=== PATIENT | male | born 1985 | race Caucasian/White ===

== ENCOUNTER 2016-06-06 12:13 | Inpatient (IN) | payer BC, OTHER ==
[~2016-06-06] VITALS: Ht 185.4 cm; Wt 68.0 kg
[2016-06-06 12:46] VITALS: BP 134/99
[2016-06-06] MEDS ORDERED: TRAZ-144 PO (13:02)
[2016-06-06] MEDS ORDERED: MAGNESIUM HYDROXIDE 30 ML LIQUID UDC PO PRN (13:15)
[2016-06-06] MEDS ORDERED: ACETAMINOPHEN 325 MG TABLET PO PRN (13:15)
[2016-06-06] MEDS ORDERED: IBUPROFEN 400 MG TABLET PO PRN (13:15)
[2016-06-06] MEDS ORDERED: diphenhydrAMINE 50 MG CAPSULE PO PRN (13:15)
[2016-06-06] MEDS ORDERED: CLONIDINE HCL 0.1 MG TABLET PO PRN (13:15)
[2016-06-06] MEDS ORDERED: PROMETHAZINE HCL 25 MG/1 ML VIAL IM PRN (13:15)
[2016-06-06] MEDS ORDERED: LORAZEPAM 1 MG TABLET PO PRN ×2 (13:15)
[2016-06-06] MEDS ORDERED: THIAMINE HCL 200 MG/2 ML VIAL IM ONE (13:15)
[2016-06-06] MEDS ORDERED: MIRALAX 17 GM POWD.PACK PO PRN (13:15)
[2016-06-06] MEDS ORDERED: LORAZEPAM 2 MG/1 ML VIAL IM PRN (13:15)
[2016-06-06] MEDS ORDERED: ONDANSETRON ODT 4 MG TAB.RAPDIS SL PRN (13:15)
[2016-06-06] MEDS ORDERED: LOPERAMIDE HCL 2 MG CAPSULE PO PRN ×2 (13:15)
[2016-06-06] MEDS ORDERED: MAG HYDROX/AL HYDROX/SIMETH 30 ML LIQUID UDC PO PRN (13:15)
[2016-06-06 14:36] LABS: *AMPHETAMINE, URINE NEGATIVE (NEGATIVE); *BARBITURATE, URINE NEGATIVE (NEGATIVE); *CANNABINOID, URINE NEGATIVE (NEGATIVE); *COCCAINE, URINE NEGATIVE (NEGATIVE); *OPIATE, URINE NEGATIVE (NEGATIVE); *PHENCYCLIDINE SCREEN,URINE NEGATIVE (NEGATIVE)
[2016-06-06 14:44] LABS: BASOPHILS % (AUTO) 0.6 % (0.0-2.0); EOSINOPHILS % (AUTO) 0.9 % (0.0-7.0); HEMATOCRIT 46.1 % (40.0-50.0); HEMOGLOBIN 15.4 g/dL (14.0-18.0); LYMPHOCYTES # (AUTO) 1.9 K/uL (0.8-4.8); LYMPHOCYTES % (AUTO) 39.1 % (20.5-51.5); MEAN CORPUSCULAR HEMOGLOBIN 30.9 uug (27.0-31.0); MEAN CORPUSCULAR HGB CONC 34 g/dL (32.0-37.0); MEAN CORPUSCULAR VOLUME 92.2 fL (82.0-92.0); MONOCYTES # (AUTO) 0.3 K/uL (0.1-1.30); MONOCYTES % (AUTO) 7.1 % (0.0-11.0); NEUTROPHILS # (AUTO) 2.6 K/uL (1.8-8.9); NEUTROPHILS % (AUTO) 52.3 % (38.5-71.5); PLATELET COUNT (AUTO) 252 K/uL (150-450); RED CELL DISTRIBUTION WIDTH 12.8 % (11.5-14.5); WHITE BLOOD COUNT (AUTO) 4.8 K/uL (4.0-11.2)
[2016-06-06 14:58] LABS: BILIRUBIN,TOTAL 0.6 mg/dL (0.2-1.0); CALCIUM 8.9 mg/dL (8.5-10.1); CREATININE 0.9 mg/dL (0.6-1.3); MAGNESIUM 1.7 mg/dL (1.8-2.4); POTASSIUM 3.6 mmol/L (3.5-5.1); TOTAL PROTEIN, SERUM 8.7 g/dL (6.4-8.2)
[2016-06-06 15:09] LABS: THYROID STIMULATING HORMONE 0.437 mIU/mL (0.358-3.740)
[2016-06-06 15:39] LABS: HIV-1/2 ANTIBODY NON REACTIVE (NONREACTIVE)
[2016-06-06 15:40] LABS: HIV-1 p24 ANTIGEN NON REACTIVE (NONREACTIVE)
[2016-06-06 16:00] VITALS: BP 134/90
[2016-06-06] MEDS ORDERED: MAGNESIUM OXIDE 400 MG TABLET PO ONE (17:00)
[2016-06-06 20:00] VITALS: BP 123/75
[2016-06-06] MEDS: HYDROXYZINE PAMOATE 25 MG CAPSULE PO PRN (20:54)
[2016-06-06] MEDS ORDERED: TRAZODONE 50 MG TABLET PO SCH (21:00)
[2016-06-07] VITALS: BP 123/57
[2016-06-07 04:00] VITALS: BP 123/60
[2016-06-07 08:00] VITALS: BP 135/87
[2016-06-07] MEDS: THIAMINE HCL 100 MG TABLET PO SCH (08:44)
[2016-06-07] MEDS: MULTIVITAMINS,THERAPEUTIC TABLET PO SCH (08:44)
[2016-06-07] MEDS: FOLIC ACID 1 MG TABLET PO SCH (08:44)
[2016-06-07] MEDS: LORAZEPAM 1 MG TABLET PO SCH ×3 (08:44→20:32)
[2016-06-07] MEDS ORDERED: TUBERCULIN,PURIF.PROT.DERIV. 5 TU/0.1 ML TEST ID ONE (09:00)
[2016-06-07] MEDS: DICYCLOMINE HCL 20 MG TABLET PO PRN (12:17)
[2016-06-07 13:10] VITALS: BP 136/87
[2016-06-07 13:36] LABS: HCV AB <0.1 s/co ratio (0.0-0.9); HEPATITIS B CORE AB, IgM Negative (Negative); HEPATITIS B SURFACE AG Negative (Negative)
[2016-06-07] MEDS: IV NS 1000 ML 1,000 ML IV PRN ×2 (14:08→22:43)
[2016-06-07 16:00] VITALS: BP 117/89
[2016-06-07 20:00] VITALS: BP 137/80
[2016-06-07] MEDS: TRAZODONE 100 MG TABLET PO SCH (20:32)
[2016-06-07] MEDS ORDERED: TRAZODONE 50 MG TABLET PO SCH (21:00)
[2016-06-08] VITALS: BP 94/53
[2016-06-08 04:00] VITALS: BP 114/71
[2016-06-08] MEDS: IV NS 1000 ML 1,000 ML IV PRN (07:44)
[2016-06-08 08:00] VITALS: BP 114/76
[2016-06-08] MEDS: LORAZEPAM 1 MG TABLET PO SCH ×4 (08:31→21:04)
[2016-06-08] MEDS: THIAMINE HCL 100 MG TABLET PO SCH (08:31)
[2016-06-08] MEDS: FOLIC ACID 1 MG TABLET PO SCH (08:31)
[2016-06-08] MEDS: MULTIVITAMINS,THERAPEUTIC TABLET PO SCH (08:31)
[2016-06-08 09:06] LABS: BILIRUBIN,DIRECT 0.3 mg/dL (0.0-0.2); BILIRUBIN,TOTAL 1.4 mg/dL (0.2-1.0); CALCIUM 8.6 mg/dL (8.5-10.1); CREATININE 0.8 mg/dL (0.6-1.3); MAGNESIUM 1.6 mg/dL (1.8-2.4); POTASSIUM 4.1 mmol/L (3.5-5.1); TOTAL PROTEIN, SERUM 7.2 g/dL (6.4-8.2)
[2016-06-08] MEDS ORDERED: MAGNESIUM OXIDE 400 MG TABLET PO ONE (10:15)
[2016-06-08] MEDS: METRONIDAZOLE 500 MG TABLET PO SCH ×2 (11:45→21:04)
[2016-06-08 12:00] VITALS: BP 129/78
[2016-06-08 16:00] VITALS: BP 115/78
[2016-06-08 20:00] VITALS: BP 127/91
[2016-06-08] MEDS: TRAZODONE 100 MG TABLET PO SCH (21:04)
[2016-06-09] VITALS: BP 112/76
[2016-06-09] MEDS: METRONIDAZOLE 500 MG TABLET PO SCH ×3 (06:18→21:25)
[2016-06-09 08:00] VITALS: BP 124/77
[2016-06-09 08:48] LABS: MAGNESIUM 1.7 mg/dL (1.8-2.4); PHOSPHOROUS 4.1 mg/dL (2.5-4.9); POTASSIUM 3.8 mmol/L (3.5-5.1)
[2016-06-09 08:53] LABS: CALCIUM 8.8 mg/dL (8.5-10.1)
[2016-06-09] MEDS: FOLIC ACID 1 MG TABLET PO SCH (09:17)
[2016-06-09] MEDS: THIAMINE HCL 100 MG TABLET PO SCH (09:18)
[2016-06-09] MEDS: LORAZEPAM 1 MG TABLET PO SCH ×3 (09:18→21:26)
[2016-06-09] MEDS: MULTIVITAMINS,THERAPEUTIC TABLET PO SCH (09:18)
[2016-06-09] MEDS ORDERED: MAGNESIUM OXIDE 400 MG TABLET PO ONE ×2 (11:30→13:00)
[2016-06-09 12:00] VITALS: BP 117/72
[2016-06-09 14:14] LABS: BASOPHILS % (AUTO) 0.6 % (0.0-2.0); EOSINOPHILS # (AUTO) 0.1 K/uL (0.0-0.7); EOSINOPHILS % (AUTO) 3.6 % (0.0-7.0); HEMATOCRIT 44.1 % (40.0-50.0); HEMOGLOBIN 14.6 g/dL (14.0-18.0); LYMPHOCYTES # (AUTO) 1.1 K/uL (0.8-4.8); MEAN CORPUSCULAR HEMOGLOBIN 30.8 uug (27.0-31.0); MEAN CORPUSCULAR HGB CONC 33 g/dL (32.0-37.0); MEAN CORPUSCULAR VOLUME 93.3 fL (82.0-92.0); MONOCYTES # (AUTO) 0.7 K/uL (0.1-1.30); MONOCYTES % (AUTO) 16.2 % (0.0-11.0); NEUTROPHILS # (AUTO) 2.2 K/uL (1.8-8.9); NEUTROPHILS % (AUTO) 53.6 % (38.5-71.5); PLATELET COUNT (AUTO) 151 K/uL (150-450); RED BLOOD CELL COUNT(AUTO) 4.73 MIL/uL (4.70-6.10); RED CELL DISTRIBUTION WIDTH 12.7 % (11.5-14.5); WHITE BLOOD COUNT (AUTO) 4.1 K/uL (4.0-11.2)
[2016-06-09 14:57] LABS: BAND % (MANUAL) 4 % (0-10); EOSINOPHILS % (MANUAL) 5 % (0-8); LYMPHOCYTES % (MANUAL) 27 % (20-40); MONOCYTES % (MANUAL) 15 % (2-10); NEUTROPHILS % (MANUAL) 49 % (42-75); PLATELET ESTIMATE ADEQUATE
[2016-06-09 16:00] VITALS: BP 131/73
[2016-06-09 20:00] VITALS: BP 128/83
[2016-06-09] MEDS: TRAZODONE 100 MG TABLET PO SCH (21:26)
[2016-06-10] MEDS: METRONIDAZOLE 500 MG TABLET PO SCH ×3 (06:50→21:07)
[2016-06-10 07:18] LABS: CALCIUM 8.8 mg/dL (8.5-10.1); CREATININE 0.9 mg/dL (0.6-1.3); MAGNESIUM 1.8 mg/dL (1.8-2.4)
[2016-06-10 08:00] VITALS: BP 122/74
[2016-06-10] MEDS: FOLIC ACID 1 MG TABLET PO SCH (09:15)
[2016-06-10] MEDS: THIAMINE HCL 100 MG TABLET PO SCH (09:15)
[2016-06-10] MEDS: MULTIVITAMINS,THERAPEUTIC TABLET PO SCH (09:15)
[2016-06-10] MEDS: LORAZEPAM 1 MG TABLET PO SCH ×2 (09:15→21:07)
[2016-06-10 12:00] VITALS: BP 132/85
[2016-06-10 16:00] VITALS: BP 124/78
[2016-06-10 20:00] VITALS: BP 121/83
[2016-06-10] MEDS: TRAZODONE 100 MG TABLET PO SCH (21:07)
[2016-06-11] MEDS: METRONIDAZOLE 500 MG TABLET PO SCH ×3 (06:49→21:05)
[2016-06-11 08:00] VITALS: BP 117/69
[2016-06-11] MEDS: MULTIVITAMINS,THERAPEUTIC TABLET PO SCH (09:26)
[2016-06-11] MEDS: THIAMINE HCL 100 MG TABLET PO SCH (09:26)
[2016-06-11] MEDS: FOLIC ACID 1 MG TABLET PO SCH (09:27)
[2016-06-11 12:00] VITALS: BP 125/80
[2016-06-11] MEDS ORDERED: HYDR-3895 PO (15:50)
[2016-06-11] MEDS ORDERED: DICY20TA28 PO (15:50)
[2016-06-11] MEDS ORDERED: Metronidazole PO (15:50)
[2016-06-11 16:00] VITALS: BP 123/79
[2016-06-11 20:00] VITALS: BP 121/90
[2016-06-11] MEDS: HYDROXYZINE PAMOATE 25 MG CAPSULE PO PRN (21:06)
[2016-06-11] MEDS: DICYCLOMINE HCL 20 MG TABLET PO PRN (21:06)
[2016-06-11 21:35] LABS: *AMPHETAMINE, URINE NEGATIVE (NEGATIVE); *BARBITURATE, URINE NEGATIVE (NEGATIVE); *CANNABINOID, URINE NEGATIVE (NEGATIVE); *COCCAINE, URINE NEGATIVE (NEGATIVE); *OPIATE, URINE NEGATIVE (NEGATIVE); *PHENCYCLIDINE SCREEN,URINE NEGATIVE (NEGATIVE)
[2016-06-11] MEDS: TRAZODONE 100 MG TABLET PO SCH (21:48)
[2016-06-12] MEDS: METRONIDAZOLE 500 MG TABLET PO SCH (06:50)
[2016-06-12 08:32] VITALS: BP 122/78
[2016-06-12] MEDS: FOLIC ACID 1 MG TABLET PO SCH (08:43)
[2016-06-12] MEDS: THIAMINE HCL 100 MG TABLET PO SCH (08:44)
[2016-06-12] MEDS: MULTIVITAMINS,THERAPEUTIC TABLET PO SCH (08:44)
== END 2016-06-12 09:06 | disposition other institution (70) | DRG 895 ==
LOC: SRC 12:13
PROVIDERS: ADMIT Internal Medicine; ATTEND Internal Medicine
PROC: HZ2ZZZZ Detoxification Services for Substance Abuse Treatment (ICD-10-PCS; principal; 2016-06-06)
PROC: HZ41ZZZ Group Counseling for Substance Abuse Treatment, Behavioral (ICD-10-PCS; 2016-06-06)
PROC: HZ31ZZZ Individual Counseling for Substance Abuse Treatment, Behavioral (ICD-10-PCS; 2016-06-08)
DX: F10.230 Alcohol dependence with withdrawal, uncomplicated (principal); A04.7 Enterocolitis due to Clostridium difficile; K70.10 Alcoholic hepatitis without ascites; Y90.9 Presence of alcohol in blood, level not specified; E83.42 Hypomagnesemia; Z81.8 Family history of other mental and behavioral disorders; F41.9 Anxiety disorder, unspecified; F12.10 Cannabis abuse, uncomplicated; Z81.1 Family history of alcohol abuse and dependence
CPT/HCPCS: 36415; 70030-TC; 80307; 83690; 83735; 84100; 84443; 85025; 86580; 86592; 86705; 86803; 87046; 87340; 87806; A4663; G6040-TC; J3411; J7030

== ENCOUNTER 2016-07-29 16:31 | Inpatient (IN) | payer BC, OTHER ==
[~2016-07-29] VITALS: Ht 185.4 cm; Wt 65.8 kg
[~2016-07-29 16:31] MED LIST: DICY20TA28 PO; HYDR-3895 PO; Metronidazole PO; TRAZ-144 PO
[2016-07-29] MEDS ORDERED: LORAZEPAM 2 MG/1 ML VIAL IM PRN (17:30)
[2016-07-29] MEDS ORDERED: ONDANSETRON ODT 4 MG TAB.RAPDIS SL PRN (17:30)
[2016-07-29] MEDS ORDERED: diphenhydrAMINE 50 MG CAPSULE PO PRN (17:30)
[2016-07-29] MEDS ORDERED: THIAMINE HCL 200 MG/2 ML VIAL IM ONE ×2 (17:30→21:00)
[2016-07-29] MEDS ORDERED: ONDANSETRON 4 MG/2 ML VIAL IM PRN (17:30)
[2016-07-29] MEDS ORDERED: ACETAMINOPHEN 325 MG TABLET PO PRN (17:30)
[2016-07-29] MEDS ORDERED: DICYCLOMINE HCL 20 MG TABLET PO PRN (17:30)
[2016-07-29] MEDS ORDERED: HYDROXYZINE PAMOATE 25 MG CAPSULE PO PRN (17:30)
[2016-07-29] MEDS ORDERED: IBUPROFEN 400 MG TABLET PO PRN (17:30)
[2016-07-29] MEDS ORDERED: MAGNESIUM HYDROXIDE 30 ML LIQUID UDC PO PRN (17:30)
[2016-07-29] MEDS ORDERED: CLONIDINE HCL 0.1 MG TABLET PO PRN (17:30)
[2016-07-29] MEDS ORDERED: LOPERAMIDE HCL 2 MG CAPSULE PO PRN ×2 (17:30)
[2016-07-29] MEDS ORDERED: MAG HYDROX/AL HYDROX/SIMETH 30 ML LIQUID UDC PO PRN (17:30)
[2016-07-29] MEDS ORDERED: LORAZEPAM 1 MG TABLET PO PRN ×2 (17:30)
[2016-07-29] MEDS ORDERED: MIRALAX 17 GM POWD.PACK PO PRN (17:30)
[2016-07-29 17:42] VITALS: BP 133/93
--- NOTE | 2016-07-29 17:50 | NUR ---
ADMISSION: A 31 YO MALE ADMITTED FOR MEDICALLY SUPERVISED DETOX FOR ETOH DEPENDENCE. PT REPORTED DRINKING 1 1/2 PINTS OF VODKA DAILY FOR 10 DAYS. HE DENIES USING ANY OTHER SUBSTANCES. HE PRESENTS WITH ANXIOUS MOOD AND CONGRUENT AFFECT. STEFANWA ON ADMISSION 5. HE C/O MILD NAUSEA AND ANXIETY. SKIN IS DRY AND INTACT WITH SOME SWEATING AROUND HAIRLINE. HE HAS A HX OF C DIFF WHEN HE WAS HERE IN MAY. HE HAS BEEN IN HERE AT [facility], [facility] ,[facility] AND [facility] IN [place] IN THE LAST YEAR. HE IS CURRENTLY LIVING WITH HIS PARENTS AND STATES HE CANNOT STOP DRINKING ON HIS OWN AND NEEDS HELP. HE STATES HE CANNOT STOP DESPITE NEGATIVE CONSEQUENCES WHICH INCLUDE UNEMPLOYMENT AND RELATIONSHIP PROBLEMS. HE REPORTS HE TAKES 100 MG OF TRAZODONE FOR SLEEP BUT DID NOT BRING MEDS IN WITH HIM. HE DENIES HAVING A PCP. HE DENIES SEIZURE HX. NKA. ORIENTED PT TO STAFF AND UNIT. ENCOURAGED INCREASED FLUIDS TO ASSIST IN DETOX PROCESS. MD AT BEDSIDE AND HE IS REPORTING 3 WEEKS OF ETOH USE TO MD. WILL CONTINUE TO MONITOR AND PROVIDE SAFE AND SUPPORTIVE ENVIRONMENT.
[2016-07-29 17:58] LABS: *AMPHETAMINE, URINE NEGATIVE (NEGATIVE); *BARBITURATE, URINE NEGATIVE (NEGATIVE); *CANNABINOID, URINE NEGATIVE (NEGATIVE); *COCCAINE, URINE NEGATIVE (NEGATIVE); *OPIATE, URINE NEGATIVE (NEGATIVE); *PHENCYCLIDINE SCREEN,URINE NEGATIVE (NEGATIVE)
[2016-07-29 18:28] LABS: BASOPHILS % (AUTO) 0.4 % (0.0-2.0); EOSINOPHILS # (AUTO) 0.1 K/uL (0.0-0.7); EOSINOPHILS % (AUTO) 1.3 % (0.0-7.0); HEMATOCRIT 44.3 % (36.7-47.1); HEMOGLOBIN 15.3 g/dL (12.5-16.3); LYMPHOCYTES # (AUTO) 1.9 K/uL (20.0-40.0); LYMPHOCYTES % (AUTO) 33.2 % (20.5-51.5); MEAN CORPUSCULAR HEMOGLOBIN 31.7 uug (23.8-33.4); MEAN CORPUSCULAR HGB CONC 35 g/dL (32.5-36.3); MEAN CORPUSCULAR VOLUME 91.7 fL (73.0-96.2); MONOCYTES # (AUTO) 0.6 K/uL (2.0-10.0); MONOCYTES % (AUTO) 11.1 % (0.0-11.0); NEUTROPHILS # (AUTO) 3.2 K/uL (1.8-8.9); PLATELET COUNT (AUTO) 158 K/uL (152-348); RED BLOOD CELL COUNT(AUTO) 4.83 MIL/uL (4.06-5.63); THYROID STIMULATING HORMONE 2.494 mIU/mL (0.358-3.740); WHITE BLOOD COUNT (AUTO) 5.8 K/uL (3.6-10.2)
[2016-07-29 18:29] LABS: ALBUMIN 4.6 g/dL (3.4-5.0); BILIRUBIN,TOTAL 0.4 mg/dL (0.2-1.0); CALCIUM 8.8 mg/dL (8.5-10.1); CREATININE 0.8 mg/dL (0.6-1.3); POTASSIUM 3.6 mmol/L (3.5-5.1); TOTAL PROTEIN, SERUM 8.4 g/dL (6.4-8.2)
--- NOTE | 2016-07-29 18:47 | NUR ---
NEWLY ADMITTED PT HERE FOR ETOH. 1 1/2 PINTS OF VODKA DAILY. CIWA 5 ON ADMISSION. SEE ADMISSION NOTE.
[2016-07-29 18:55] LABS: HIV-1 p24 ANTIGEN NON REACTIVE (NONREACTIVE); HIV-1/2 ANTIBODY NON REACTIVE (NONREACTIVE)
[2016-07-29 19:10] LABS: MAGNESIUM 1.7 mg/dL (1.8-2.4)
[2016-07-29 20:00] VITALS: BP 120/84
--- NOTE | 2016-07-29 20:00 | NUR ---
START OF SHIFT NOTE RECEIVED PATIENT IN ROOM. PATIENT REPORTS ANXIETY, TREMORS, NO APPETITE, NO N/V, STUFFY NOSE , SNEEZING. DENIES PAIN. PATIENT ALERT AND ORIENTED X 4. RESPIRATION EVEN AND UNLABORED. NO SOB. PATIENT IS NEWLY ADMITTED FOR ETOH DEPENDENCE. PATIENT DRINKS 1 1/2 PINT OF VODKA DAILY X 3 WEEKS. PATIENT IS ON 5 DAY ATIVAN TAPER. PATIENT REPORTS PMH OF C-DIFF AND ANXIETY. NO SEIZURE HISTORY. PATIENT IS FALL/SEIZURE PRECAUTION. SKIN INTACT. PATIENT DID NOT RECEIVE ANY PRN MEDICATION DURING THE DAY. LAST CIWA 5. SAFETY MEASURES IN PLACE. CALL LIGHT IN REACH. WILL CONTINUE TO MONITOR.
[2016-07-29] MEDS ORDERED: LORAZEPAM 1 MG TABLET PO SCH (21:00)
[2016-07-29] MEDS ORDERED: MAGNESIUM OXIDE 400 MG TABLET PO ONE (21:45)
--- NOTE | 2016-07-29 21:50 | NUR ---
PRN VISTARIL AND BENADRYL ADMINISTRATION PATIENT REPORTS ANXIOUS AND REQUESTS FOR SLEEP AID. PRN VISTARIL AND BENADRYL GIVEN. WILL MONITOR FOR EFFECTIVENESS
--- NOTE | 2016-07-29 23:00 | NUR ---
PRN VISTARIL/BENADRYL RE-ASSESSMENT PATIENT IN BED ASLEEP. RESPIRATION EVEN AND UNLABORED. NO S/S OF DISTRESS. SAFETY MEASURES IN PLACE.CALL LIGHT IN REACH. WILL CONTINUE TO MONITOR
[2016-07-30] VITALS: BP 123/80
[2016-07-30 04:00] VITALS: BP 128/72
--- NOTE | 2016-07-30 07:11 | NUR ---
END OF SHIFT NOTE MONITORED PATIENT THROUGHOUT THE NIGHT. PATIENT REPORTED ANXIETY, TREMORS, NO APPETITE, NO N/V, STUFFY NOSE , SNEEZING. DENIES PAIN DURING SHIFT. PATIENT ALERT AND ORIENTED X 4. RESPIRATION EVEN AND UNLABORED. NO SOB. PATIENT IS NEWLY ADMITTED FOR ETOH DEPENDENCE. PATIENT DRINKS 1 1/2 PINT OF VODKA DAILY X 3 WEEKS. PATIENT WAS PLACED ON 5 DAY ATIVAN TAPER . NO ADVERSE REACTION. PATIENT COMPLIANT WITH MEDICATIONS AND ENCOURAGE TO PARTICIPATE IN GROUPS. PATIENT IS FALL/SEIZURE PRECAUTION. SKIN INTACT. PATIENT WAS GIVEN PRN BENADRYL AND VISTARIL AT [address] CALL LIGHT IN REACH. WILL CONTINUE TO MONITOR. SLEPT 8 HOURS. FLUID INTAKE 750 ML. VOIDED X 2. NO BM . LAST CIWA . 2
--- NOTE | 2016-07-30 07:55 | NUR ---
START OF SHIFT: RECEIVED PT A/O X 4. HE PRESENTS WITH BLUNTED AFFECT AND DEPRESSED MOOD. HE DENIES S/I AND H/I.SKIN IS MOIST AND HIS SHIRT IS WET FROM REPORTED SWEATING.HE C/O COLD SWEATS, ANXIETY,DEPRESSION AND HE STATES HE FEELS WEAK AND SHAKY. SUPPLIED PT WITH A CHANGE OF CLOTHES. ATIVAN TAPER IN PROGRESS TO MANAGE S/S OF W/D. CIWA 8. ENCOURAGED INCREASED FLUIDS FOR HYDRATION.ENCOURAGED REST TODAY. PPD PLANTED TO [facility]. BED LOW AND LOCKED. CALL CELIS IN REACH. WILL CONTINUE TO PROVIDE SAFE AND SUPPORTIVE ENVIRONMENT. Addendum: 07/30/16 at 1008 by JESSIKA GEORGE RN ERROR , CIWA IS 12 NOT 8 AT 0800
[2016-07-30 08:00] VITALS: BP 107/72
[2016-07-30] MEDS: MULTIVITAMINS,THERAPEUTIC TABLET PO SCH (08:49)
[2016-07-30] MEDS: THIAMINE HCL 100 MG TABLET PO SCH (08:49)
[2016-07-30] MEDS: LORAZEPAM 1 MG TABLET PO SCH ×3 (08:49→22:05)
[2016-07-30] MEDS: FOLIC ACID 1 MG TABLET PO SCH (08:49)
[2016-07-30] MEDS ORDERED: TUBERCULIN,PURIF.PROT.DERIV. 5 TU/0.1 ML TEST ID ONE (09:00)
[2016-07-30 12:00] VITALS: BP 107/72
[2016-07-30] MEDS ORDERED: TRAZODONE 50 MG TABLET PO PRN (12:45)
[2016-07-30] MEDS: GABAPENTIN 300 MG CAPSULE PO SCH ×2 (15:15→22:04)
[2016-07-30 16:00] VITALS: BP 113/75
--- NOTE | 2016-07-30 18:46 | NUR ---
END OF SHIFT: PT CONTINUES ON ATIVAN TAPER. LAST CIWA 5. HE SPENT MOST OF SHIFT RESTING IN BED. PT PRESENTS AT THIS TIME WITH BLUNTED AFFECT AND DEPRESSED MOOD. HE DENIES S/I AND H/I . HE HAD SOME COLD SWEATS THROUGHOUT LAST NIGHT AND THIS AM BUT THE SWEATING SUBSIDED. HE REPORTS SOME ANXIETY AND STATES THE DETOX MEDS ARE EFFECTIVE. PPD PLANTED TO [facility]. PT STATES HE INCREASED HIS FLUID INTAKE. WILL PASS SHIFT REPORT TO ONCOMING NIGHT NURSE.
--- NOTE | 2016-07-30 19:10 | NUR ---
Start of shift note Received report from day shift nurse. Pt is a 31 yo male, A+Ox4, presenting to [facility] for ETOH dependence. Pt has NKA, is on Full Code status, and on Regular diet. Pt has HX of C. Diff and Anxiety. Pt is on Fall precautions. Pt is on 5 day Ativan taper, tolerated well. No s/s of distress noted at this time. Respirations even and unlabored. Will continue to monitor.
[2016-07-30 20:24] VITALS: BP 138/96
[2016-07-30] MEDS: PRAZOSIN HCL 1 MG CAPSULE PO SCH (22:05)
[2016-07-31 00:20] VITALS: BP 123/77
[2016-07-31 04:18] VITALS: BP 109/69
--- NOTE | 2016-07-31 07:12 | NUR ---
End of shift note Pt is a 31 yo male, A+Ox4, presenting to [facility] for ETOH dependence. Pt has NKA, is on Full Code status, and on Regular diet. Pt has HX of C. Diff and Anxiety. Pt is on Fall precautions. Pt is on 5 day Ativan taper, tolerated well. Pt slept for a total of 10 HRS. Last CIWA: 4 @0400. No s/s of distress noted at this time. Respirations even and unlabored. Will endorse to day shift nurse.
[2016-07-31 08:00] VITALS: BP 102/76
--- NOTE | 2016-07-31 08:10 | NUR ---
START OF SHIFT: RECEIVED PT A/O X 4. HE PRESENTS WITH BLUNTED AFFECT AND DEPRESSED MOOD. HE DENIES S/I AND H/I. HE IS ON ATIVAN TAPER TO MANAGE S/S OF W/ WHICH INCLUDE TREMORS,SWEATS,RESTLESSNESS AND ANXIETY. CIWA 6. HE STATES HE SLEPT OK. ENCOURAGED INCREASED FLUIDS. ENCOURAGED GROUP ATTENDANCE TO IMPROVE COPING SKILLS AND PREVENT RELAPSE. WILL CONTINUE TO MONITOR AND PROVIDE SAFE AND SUPPORTIVE ENVIRONMENT.
[2016-07-31] MEDS: FOLIC ACID 1 MG TABLET PO SCH (08:39)
[2016-07-31] MEDS: THIAMINE HCL 100 MG TABLET PO SCH (08:40)
[2016-07-31] MEDS: LORAZEPAM 1 MG TABLET PO SCH ×4 (08:40→20:39)
[2016-07-31] MEDS: GABAPENTIN 300 MG CAPSULE PO SCH ×2 (08:40→15:07)
[2016-07-31] MEDS: MULTIVITAMINS,THERAPEUTIC TABLET PO SCH (08:40)
[2016-07-31 12:00] VITALS: BP 128/94
[2016-07-31 14:07] LABS: HCV AB <0.1 s/co ratio (0.0-0.9); HEPATITIS B CORE AB, IgM Negative (Negative); HEPATITIS B SURFACE AG Negative (Negative)
[2016-07-31 16:00] VITALS: BP 122/84
--- NOTE | 2016-07-31 18:51 | NUR ---
END OF SHIFT: PT CONTINUES ON ATIVAN TAPER. LAST CIWA 4. HE ATTENDED SOME GROUPS AND INTERACTED WITH PEERS TODAY. HIS AFFECT IS BLUNTED AND MOOD DEPRESSED. HE DENIES S/I AND H/I . PT STATES HE IS STILL SWEATING A LITTLE BUT REPORTS DETOX MEDS ARE EFFECTIVE. HE ALSO REPORTS SOME ANXIETY. HE IS EATING 100% OF MEALS AND IS COMPLIANT WITH INCREASED FLUIDS.NO PENS GIVEN ON THIS SHIFT.
[2016-07-31 20:21] VITALS: BP 125/83
[2016-07-31] MEDS: PRAZOSIN HCL 1 MG CAPSULE PO SCH (20:39)
[2016-07-31] MEDS ORDERED: GABAPENTIN 300 MG CAPSULE PO SCH (21:00)
[2016-08-01 00:18] VITALS: BP 100/64
[2016-08-01 04:40] VITALS: BP 101/62
--- NOTE | 2016-08-01 07:03 | NUR ---
End of shift note Pt is a 31 yo male, A+Ox4, presenting to [facility] for ETOH dependence. Pt has NKA, is on Full Code status, and on Regular diet. Pt has HX of C. Diff and Anxiety. Pt is on Fall precautions. Pt is on 5 day Ativan taper, tolerated well. Pt slept for a total of 9 HRS. Last CIWA: 3 @0400. No s/s of distress noted at this time. Respirations even and unlabored. Will endorse to day shift nurse.
--- NOTE | 2016-08-01 07:42 | NUR ---
START OF SHIFT NOTE Received pt this morning AOx4. Pt reports he did not sleep so well last night and is feeling "shakey." Pt is on 5 day Ativan taper. No PRNs needed during the shift per night nurse. Pt slept 8 hours. Last CIWA 3. Encouraged attendance of groups and activities. Will provide safe and supportive environment. Will continue to monitor.
[2016-08-01 08:00] VITALS: BP 100/68
[2016-08-01] MEDS: FOLIC ACID 1 MG TABLET PO SCH (08:44)
[2016-08-01] MEDS: LORAZEPAM 1 MG TABLET PO SCH ×3 (08:44→21:24)
[2016-08-01] MEDS: THIAMINE HCL 100 MG TABLET PO SCH (08:44)
[2016-08-01] MEDS: MULTIVITAMINS,THERAPEUTIC TABLET PO SCH (08:44)
[2016-08-01 08:48] LABS: ALBUMIN 4.4 g/dL (3.4-5.0); BILIRUBIN,DIRECT 0.2 mg/dL (0.0-0.2); BILIRUBIN,TOTAL 1.1 mg/dL (0.2-1.0); CALCIUM 9.2 mg/dL (8.5-10.1); CREATININE 0.8 mg/dL (0.6-1.3); MAGNESIUM 1.8 mg/dL (1.8-2.4); TOTAL PROTEIN, SERUM 8.4 g/dL (6.4-8.2)
[2016-08-01] MEDS ORDERED: GABAPENTIN 300 MG CAPSULE PO SCH (09:00)
[2016-08-01 12:00] VITALS: BP 111/86
[2016-08-01] MEDS: GABAPENTIN 300 MG CAPSULE PO SCH ×2 (14:15→21:00)
[2016-08-01 16:00] VITALS: BP 128/98
--- NOTE | 2016-08-01 18:43 | NUR ---
END OF SHIFT Pt on 5 day Ativan taper and tolerating well. No PRNs needed during shift. Pt stated he was shakey in the morning but the detox medications were effective in managing s/s of w/d during shift. Pt attended groups and activities today and socialized with peers. Pt has brighter affect and congruent mood. Last CIWA 2. All needs have been met. Safety measures in place. Will pass shift report to oncoming nurse.
--- NOTE | 2016-08-01 19:09 | NUR ---
Start of shift note Received report from day shift nurse. Pt is a 31 yo male, A+Ox4, presenting to [facility] for ETOH dependence. Pt has NKA, is on Full Code status, and on Regular diet. Pt has HX of C. Diff and Anxiety. Pt is on Fall precautions. Pt is on 5 day Ativan taper, tolerated well. No s/s of distress noted at this time. Respirations even and unlabored. Will continue to monitor.
[2016-08-01 20:12] VITALS: BP 97/64
[2016-08-01] MEDS: PRAZOSIN HCL 1 MG CAPSULE PO SCH (21:24)
[2016-08-02 00:16] VITALS: BP 109/68
[2016-08-02 04:37] VITALS: BP 116/74
--- NOTE | 2016-08-02 07:08 | NUR ---
End of shift note Pt is a 31 yo male, A+Ox4, presenting to [facility] for ETOH dependence. Pt has NKA, is on Full Code status, and on Regular diet. Pt has HX of C. Diff and Anxiety. Pt is on Fall precautions. Pt is on 5 day Ativan taper, tolerated well. Pt slept for a total of 10 HRS. Last CIWA: 3 @0400. No s/s of distress noted at this time. Respirations even and unlabored. Will endorse to day shift nurse.
[2016-08-02 08:00] VITALS: BP 110/70
--- NOTE | 2016-08-02 08:00 | NUR ---
START OF SHIFT Pt 31 y/o male admitted for etoh dependence. Pt received in room awake on bed watching television. Pt alert and oriented to name, place, and time. Perrla. Skin warm and dry to touch. Respirations even and unlabored. Bilateral hand tremors felt. Pt was concerned about discharge this friday. Told pt I would have the marine air ground task force planners come talk to him as soon as they get in. Bed on lowest position with side rails x2 up for safety. Call light within reach. No distress noted at this time.
[2016-08-02] MEDS: FOLIC ACID 1 MG TABLET PO SCH (09:03)
[2016-08-02] MEDS: MULTIVITAMINS,THERAPEUTIC TABLET PO SCH (09:04)
[2016-08-02] MEDS: THIAMINE HCL 100 MG TABLET PO SCH (09:04)
[2016-08-02] MEDS: GABAPENTIN 300 MG CAPSULE PO SCH ×3 (09:04→20:16)
[2016-08-02] MEDS: LORAZEPAM 1 MG TABLET PO SCH ×2 (09:04→20:15)
[2016-08-02 12:00] VITALS: BP 126/96
--- NOTE | 2016-08-02 12:00 | NUR ---
NSG ENTRY Pt observed in activity room. No distress noted at this time.
[2016-08-02 16:00] VITALS: BP 131/90
--- NOTE | 2016-08-02 18:43 | NUR ---
END OF SHIFT Pt 31 y/o male admitted for etoh dependence. Pt alert and oriented to name, place, and time. Perrla. Skin warm and slightly moist to touch. Respirations even and unlabored. Bilateral hand tremors noted slightly . Pt observed mostly in dining room throughout the day. Pt was seen by Dr. Grant today. Pt medication compliant and tolerated well. No ASE noted. Bed on lowest position with side rails x2 up for safety. Call light within reach. No distress noted at this time.
[2016-08-02 20:00] VITALS: BP 132/92
--- NOTE | 2016-08-02 20:00 | NUR ---
START OF SHIFT NOTE RECEIVED PATIENT IN ROOM. ALERT AND ORIENTED X 4. RESPIRATION EVEN AND UNLABORED. PATIENT STATES HE'S MUCH BETTER JUST ANXIETY AND SLIGHT SWEATING. NO N/V. GOOD APPETITE AND DRINKING FLUIDS WELL. PATIENT STATES HE'S ATTENDING GROUPS. DENIES ANY PAIN. RECEIVED REPORT FROM DAY SHIFT NURSE. PATIENT IS A 31 YEAR OLD MALE, ADMITTED FOR ETOH DEPENDENCE. PATIENT IS ON 5TH DAY OF HIS 5 DAYS ATIVAN TAPER, TOLERATED WELL. NO ADVERSE REACTION. LAST DOSE TONIGHT. PATIENT IS FULL CODE, REGULAR DIET AND NO KNOWN ALLERGY. PATIENT REPORTS PMH OF C-DIFF (MAY 2016 AND ANXIETY. PATIENT IS ON FALL/SEIZURE PRECAUTION. SKIN INTACT. PATIENT DID NOT REQUIRE ANY PRN MEDICATION DURING THE DAY. LAST CIWA 3. SAFETY MEASURES IN PLACE. CALL LIGHT IN REACH. WILL CONTINUE TO MONITOR.
[2016-08-02] MEDS: PRAZOSIN HCL 1 MG CAPSULE PO SCH (20:16)
--- NOTE | 2016-08-02 22:11 | NUR ---
PRN DESYREL ADMINISTRATION PATIENT REQUESTS FOR SLEEP AID. PRN DESYREL GIVEN . WILL MONITOR FOR EFFECTIVENESS
--- NOTE | 2016-08-02 23:30 | NUR ---
PRN YAKELINYRMERNA RE-ASSESSMENT PATIENT IN BED WITH EYES CLOSED. RESPIRATION EVEN AND UNLABORED. NO S/S OF DISTRESS. SAFETY MEASURES IN PLACE. CALL LIGHT IN REACH. WILL CONTINUE TO MONITOR.
[2016-08-03] VITALS: BP 106/61
[2016-08-03 04:00] VITALS: BP 90/53
--- NOTE | 2016-08-03 07:30 | NUR ---
END OF SHIFT NOTE MONITORED PATIENT THROUGHOUT THE NIGHT. PATIENT REMAIN ALERT AND ORIENTED X 4. RESPIRATION EVEN AND UNLABORED. PATIENT STATES HE'S MUCH BETTER JUST ANXIETY AND SLIGHT SWEATING. NO N/V. GOOD APPETITE AND DRINKING FLUIDS WELL. PATIENT STATES HE'S ATTENDING GROUPS. DENIES ANY PAIN. RECEIVED REPORT FROM DAY SHIFT NURSE. PATIENT IS A 31 YEAR OLD MALE, ADMITTED FOR ETOH DEPENDENCE. PATIENT IS ON 5TH DAY OF HIS 5 DAYS ATIVAN TAPER, TOLERATED WELL. NO ADVERSE REACTION. LAST DOSE GIVEN LAST NIGHT. PATIENT COMPLIANT WITH MEDICATION AND TREATMENT PLAN. PRN TRAZADONE GIVEN AND EFFECTIVE. SAFETY MEASURES IN PLACE. CALL LIGHT IN REACH. WILL CONTINUE TO MONITOR. SLEPT 6 HOURS. FLUID INTAKE OF 973 ML. VOIDED X 1 . NO BM. LAST CIWA 1.
--- NOTE | 2016-08-03 07:40 | NUR ---
START OF SHIFT Received report from police shift commander nurse. 31 year old male patient admitted on 07/29/16 for ETOH withdrawals. Pt has completed ordered Ativan taper. Pt is A/O x4. Hx of c.diff and anxiety. NKA, full code, and regular diet. PRN Trazodone was administered at night, pt slept for 6 hours. Most recent CIWA is 1. Pt is resting in bed RR even and unlabored. All needs met, will continue to monitor.
[2016-08-03 08:18] VITALS: BP 113/84
[2016-08-03] MEDS: FOLIC ACID 1 MG TABLET PO SCH (09:16)
[2016-08-03] MEDS: MULTIVITAMINS,THERAPEUTIC TABLET PO SCH (09:16)
[2016-08-03] MEDS: GABAPENTIN 300 MG CAPSULE PO SCH ×3 (09:17→21:32)
[2016-08-03] MEDS: THIAMINE HCL 100 MG TABLET PO SCH (09:24)
[2016-08-03 13:48] VITALS: BP 121/87
[2016-08-03 14:11] LABS: *AMPHETAMINE, URINE NEGATIVE (NEGATIVE); *BARBITURATE, URINE NEGATIVE (NEGATIVE); *CANNABINOID, URINE NEGATIVE (NEGATIVE); *COCCAINE, URINE NEGATIVE (NEGATIVE); *OPIATE, URINE NEGATIVE (NEGATIVE); *PHENCYCLIDINE SCREEN,URINE NEGATIVE (NEGATIVE)
[2016-08-03 16:00] VITALS: BP 129/87
--- NOTE | 2016-08-03 19:15 | NUR ---
END OF SHIFT Endorsed to container finishing inspector nurse. 31 year old male patient admitted on 07/29/16 for ETOH withdrawals. Pt has completed ordered Ativan taper. Pt is A/O x4. Pt most recent CIWA is 3. Pt attends group activities and therapy sessions. Pt remains compliant and denies acute s/s of withdrawal. Mild tremors and anxiety are present. Pt encouraged to verbalize feelings. Hx of c.diff and anxiety. NKA, full code, and regular diet. No PRN medications needed or administered throughout day. Pt is compliant with scheduled medications. Remains stable and seizure free. Safety precautions remain in place. All needs met, night nurse will continue to monitor.
[2016-08-03 20:00] VITALS: BP 127/92
--- NOTE | 2016-08-03 20:00 | NUR ---
START OF SHIFT NOTE PATIENT IN ROOM. PATIENT ALERT AND ORIENTED X 4. RESPIRATION EVEN AND UNLABORED. PATIENT DENIES ANY PAIN. NO N/V/D. PATIENT ATTENDING GROUPS. EATING AND DRINKING FLUIDS WELL. RECEIVED REPORT FROM DAY SHIFT NURSE. PATIENT IS A 31 YEAR OLD MALE, ADMITTED FOR ETOH DEPENDENCE. PATIENT DRINKS 1 1/2 PINTS VODKA DAILY FOR 3 WEEKS. PATIENT COMPLETED 5 DAY ATIVAN TAPER. PATIENT MEDICALLY CLEARED TO BE DISCHARGED TOMORROW. PATIENT REPORT PMH OF C-DIFF (MAY 2016) AND ANXIETY. PATIENT IS FULL CODE, REGULAR DIET AND NO KNOWN ALLERGY. VS WNL. PATIENT DID NOT REQUIRE ANY PRN MEDICATION DURING THE DAY. LAST CIWA 3. ON FALL/SEIZURE PRECAUTION. SAFETY MEASURED IN PLACE. CALL LIGHT IN REACH. WILL CONTINUE TO MONITOR.
[2016-08-03] MEDS: PRAZOSIN HCL 1 MG CAPSULE PO SCH (21:34)
[2016-08-03] MEDS ORDERED: HYDR-3895 PO (22:04)
[2016-08-03] MEDS ORDERED: Gabapentin PO (22:04)
[2016-08-03] MEDS ORDERED: PRAZ1CAP2 PO (22:04)
[2016-08-04] VITALS: BP 126/82
--- NOTE | 2016-08-04 04:00 | NUR ---
VS/CIWA PATIENT REFUSED VS. CIWA UNABLE TO COMPLETE .RESPIRATION EVEN AND UNLABORED. RR 15. SAFETY MEASURES IN PLACE. CALL LIGHT IN REACH. WILL CONTINUE TO MONITOR.
--- NOTE | 2016-08-04 07:22 | NUR ---
END OF SHIFT NOTE PATIENT REMAIN ALERT AND ORIENTED X 4. RESPIRATION EVEN AND UNLABORED. PATIENT DENIES ANY PAIN. NO N/V/D. PATIENT ATTENDING GROUPS. EATING AND DRINKING FLUIDS WELL. PATIENT IS ADMITTED FOR ETOH DEPENDENCE. PATIENT DRINKS 1 1/2 PINTS VODKA DAILY FOR 3 WEEKS. PATIENT COMPLETED 5 DAY ATIVAN TAPER, TOLERATED WELL. NO ADVERSE REACTION . PATIENT MEDICALLY CLEARED TO BE DISCHARGED TODAY . PATIENT COMPLIANT WITH MEDICATION AND TREATMENT PLAN. PATIENT REPORT PMH OF C-DIFF (MAY 2016) AND ANXIETY. PATIENT IS FULL CODE, REGULAR DIET AND NO KNOWN ALLERGY. PATIENT DID NOT REQUIRE ANY PRN MEDICATION DURING SHIFT . ON FALL/SEIZURE PRECAUTION. SAFETY MEASURED IN PLACE. CALL LIGHT IN REACH. WILL CONTINUE TO MONITOR. SLEPT 6 HOURS. FLUID INTAKE 1,000 ML. VOIDED X 1. NO BM. LAST CIWA 0.
--- NOTE | 2016-08-04 07:45 | NUR ---
START OF SHIFT Received report from night nurse. 31 year old male patient admitted on 07/29/16 for ETOH withdrawals. Pt has completed ordered Ativan taper and is medically cleared for discharge today. Pt is A/O x4. Pt most recent CIWA is 0. Denies acute s/s of withdrawal. Pt remains compliant and denies acute s/s of withdrawal. Pt encouraged to verbalize feelings. Hx of c.diff and anxiety. NKA, full code, and regular diet. No PRN medications needed or administered throughout night. V/S remain stable. Pt slept for 6 hours. Pt is compliant with scheduled medications. Remains stable and seizure free. Safety precautions remain in place. Discharge paperwork is completed, patient did not bring any home medications, pt maya not have any prescriptions in chart. All needs met, will continue to monitor.
[2016-08-04 08:04] VITALS: BP 116/72
[2016-08-04] MEDS: THIAMINE HCL 100 MG TABLET PO SCH (08:13)
[2016-08-04] MEDS: MULTIVITAMINS,THERAPEUTIC TABLET PO SCH (08:13)
[2016-08-04] MEDS: GABAPENTIN 300 MG CAPSULE PO SCH (08:13)
[2016-08-04] MEDS: FOLIC ACID 1 MG TABLET PO SCH (08:13)
--- NOTE | 2016-08-04 08:30 | NUR ---
D/C NOTE Pt is A/O x4. V/S remain WNL. Pt denies SI/HI or hallucinations. Pt shows no s/s of acute withdrawal at this time, CIWA is 3 and pt is stable. has medically cleared pt for d/c. Education on Hepatitis C, smoking cessation and medication side effects provided. Pt verbalizes understanding. All pt belongings are in belonging bag,pt did not have any prescriptions, pt did not have any home medications. Refuses PNU vaccination. Pt is being accompanied by P[employer] MANAGER at this time to be discharged home, pt has family picking him up. All needs met.
== END 2016-08-04 08:30 | disposition home or self-care (01) | DRG 895 ==
LOC: SRC 16:31
PROVIDERS: ADMIT Internal Medicine; ATTEND Internal Medicine
PROC: HZ2ZZZZ Detoxification Services for Substance Abuse Treatment (ICD-10-PCS; principal; 2016-07-29)
PROC: HZ41ZZZ Group Counseling for Substance Abuse Treatment, Behavioral (ICD-10-PCS; 2016-07-30)
PROC: HZ31ZZZ Individual Counseling for Substance Abuse Treatment, Behavioral (ICD-10-PCS; 2016-07-30)
DX: F10.230 Alcohol dependence with withdrawal, uncomplicated (principal); F10.220 Alcohol dependence with intoxication, uncomplicated; K70.10 Alcoholic hepatitis without ascites; Y90.7 Blood alcohol level of 200-239 mg/100 ml; Z81.8 Family history of other mental and behavioral disorders; G47.00 Insomnia, unspecified; E83.42 Hypomagnesemia; Z86.19 Personal history of other infectious and parasitic diseases
CPT/HCPCS: 36415; 70030-TC; 80307; 83690; 83735; 84443; 85025; 86580; 86592; 86705; 86803; 87340; 87806; G6040-TC; J3411; Q0163